=== PATIENT | female | born 1955 | race Caucasian/White ===

== ENCOUNTER → 2020-06-27 | Outpatient (CLI) | payer OTHER ==
--- NOTE | 2020-06-27 13:48 | XR ---
EXAMINATION TYPE: XR knee complete RT DATE OF EXAM: 06/27/2020 COMPARISON: NONE HISTORY: Pain TECHNIQUE: Three views are submitted. FINDINGS: Mild narrowing of the medial compartment of the knee joint compatible with mild arthropathy. Osseous structures are intact. No acute fracture seen. IMPRESSION: 1. No acute fracture or dislocation.
== END | disposition home or self-care (01) ==
LOC: RADXRYALE 11:39
PROVIDERS: ATTEND Family Medicine
DX: M25.561 Pain in right knee (principal)

== ENCOUNTER 2021-12-29 18:13 | Emergency (ER) | payer OTHER ==
[2021-12-29] MEDS ORDERED: SODIUM CHLORIDE 0.9% 1,000 ML IV ONE (18:18)
[2021-12-29 18:33] VITALS: RESP 18; TEMP 98.2
--- NOTE | 2021-12-29 18:42 | ED ---
General Adult HPI - General Chief complaint: Syncope Stated complaint: SYNCOPE Time Seen by Provider: 12/29/21 18:13 Source: patient, EMS, RN notes reviewed, old records reviewed Mode of arrival: EMS Limitations: no limitations - History of Present Illness Initial comments: This is a 66-year-old female presents emergency Department after syncopal episod e. Patient was donating plasma when she started feeling lightheaded and then according to EMS she passed out and began vomiting. Patient states on the way and she continued to be a little bit lightheaded but the nausea had subsided. Currently patient states she still feels slightly lightheaded but other than that she has no symptoms. Patient denies any patient denies any numbness weakness. Patient denies chest pain palpitations difficulty breathing shortness breath per patient any abdominal pain. And again patient has no nausea now but did vomit earlier. - Related Data Home Medications Medication Instructions Recorded Confirmed Acetaminophen/Diphenhydramine 1 tab PO HS 12/29/21 12/29/21 [Tylenol PM 500-25mg] Pantoprazole (Unknown Strength) 1 dose PO DAILY PRN 12/29/21 12/29/21 Allergies Allergy/AdvReac Type Severity Reaction Status Date / Time codeine AdvReac Vomiting Verified 12/29/21 18:56 Review of Systems ROS Statement: Those systems with pertinent positive or pertinent negative responses have been documented in the HPI. ROS Other: All systems not noted in ROS Statement are negative. Past Medical History Past Medical History: No Reported History History of Any Multi-Drug Resistant Organisms: None Reported Additional Past Surgical History / Comment(s): wisdom teeth Smoking Status: Never smoker Past Alcohol Use History: None Reported Past Drug Use History: None Reported General Exam - General Exam Comments Initial Comments: GENERAL: Patient is well-developed and well-nourished. Patient is nontoxic and well- hydrated and is in mild distress. ENT: Neck is soft and supple. No significant lymphadenopathy is noted. Oropharynx is clear. Moist mucous membranes. Neck has full range of motion without eliciting any pain. EYES: The sclera were anicteric and conjunctiva were pink and moist. Extraocular movements were intact and pupils were equal round and reactive to light. Eyelids were unremarkable. PULMONARY: Unlabored respirations. Good breath sounds bilaterally. No audible rales rhonchi or wheezing was noted. CARDIOVASCULAR: There is a regular rate and rhythm without any murmurs gallops or rubs. ABDOMEN: Soft and nontender with normal bowel sounds. SKIN: Skin is clear with no lesions or rashes and otherwise unremarkable. NEUROLOGIC: Patient is alert and oriented x3. Cranial nerves II through XII are grossly intact. Motor and sensory are also intact. Normal speech, volume and content. Symmetrical smile. MUSCULOSKELETAL: Normal extremities with adequate strength and full range of motion. LYMPHATICS: No significant lymphadenopathy is noted PSYCHIATRIC: Normal psychiatric evaluation. Limitations: no limitations Course Vital Signs 12/29/21 18:29 Temperature 98.2 F Pulse Rate 86 Respiratory 18 Rate Blood Pressure 129/84 O2 Sat by Pulse 95 Oximetry Medical Decision Making - Medical Decision Making I went back and reevaluated the patient she's been asymptomatic for the majority of her stay initially she had a little bit of lightheadedness but that is resolved. EKG shows sinus rhythm at 82 bpm KS interval 160 QRS is 80 QT interval 358 QTC is 397. Patient's EKG shows no ST segment elevation or depression. - Lab Data Result diagrams: 12/29/21 18:35 12/29/21 18:35 Lab Results 12/29/21 12/29/21 Range/Units 18:35 18:35 WBC 11.6 H (3.8-10.6) k/uL RBC 5.83 H (3.80-5.40) m/uL Hgb 18.0 H (11.4-16.0) gm/dL Hct 53.6 H (34.0-46.0) % MCV 91.9 (80.0-100.0) fL MCH 31.0 (25.0-35.0) pg MCHC 33.7 (31.0-37.0) g/dL RDW 13.1 (11.5-15.5) % Plt Count 153 (150-450) k/uL MPV 9.0 Neutrophils % 79 % Lymphocytes % 12 % Monocytes % 6 % Eosinophils % 1 % Basophils % 1 % Neutrophils # 9.2 H (1.3-7.7) k/uL Lymphocytes # 1.4 (1.0-4.8) k/uL Monocytes # 0.7 (0-1.0) k/uL Eosinophils # 0.2 (0-0.7) k/uL Basophils # 0.1 (0-0.2) k/uL Sodium 137 (137-145) mmol/L Potassium 3.8 (3.5-5.1) mmol/L Chloride 106 (98-107) mmol/L Carbon Dioxide 23 (22-30) mmol/L Anion Gap 8 mmol/L BUN 17 (7-17) mg/dL Creatinine 0.77 (0.52-1.04) mg/dL Est GFR (CKD-EPI)AfAm >90 (>60 ml/min/1.73 sqM) Est GFR (CKD-EPI)NonAf 82 (>60 ml/min/1.73 sqM) Glucose 107 H (74-99) mg/dL Calcium 8.4 (8.4-10.2) mg/dL Total Bilirubin 0.8 (0.2-1.3) mg/dL AST 27 (14-36) U/L ALT 19 (4-34) U/L Alkaline Phosphatase 73 (38-126) U/L Total Protein 5.4 L (6.3-8.2) g/dL Albumin 3.4 L (3.5-5.0) g/dL Disposition Clinical Impression: Vasovagal syncope Disposition: HOME SELF-CARE Condition: Good Instructions (If sedation given, give patient instructions): Syncope (ED) Additional Instructions: Patient should be well-hydrated prior to giving plasma. Is patient prescribed a controlled substance at d/c from ED?: No Referrals: None,Stated [Primary Care Provider] - 1-2 days Time of Disposition: 19:33
[2021-12-29 18:44] LABS: Basophils # (A) 0.1 k/uL (0-0.2); Basophils % (A) 1 %; Eosinophils # (A) 0.2 k/uL (0-0.7); Eosinophils % (A) 1 %; HCT 53.6 % (34.0-46.0); Lymphocytes # (A) 1.4 k/uL (1.0-4.8); Lymphocytes % (A) 12 %; MCHC 33.7 g/dL (31.0-37.0); MCV 91.9 fL (80.0-100.0); Monocytes # (A) 0.7 k/uL (0-1.0); Monocytes % (A) 6 %; Neutrophils # (A) 9.2 k/uL (1.3-7.7); Neutrophils % (A) 79 %; Platelet Count 153 k/uL (150-450); RBC 5.83 m/uL (3.80-5.40); RDW 13.1 % (11.5-15.5); WBC 11.6 k/uL (3.8-10.6)
[2021-12-29 18:53] LABS: ALT 19 U/L (4-34); AST 27 U/L (14-36); African American GFR (CKD) >90 (>60 ml/min/1.73 sqM); Albumin 3.4 g/dL (3.5-5.0); Alkaline Phosphatase 73 U/L (38-126); Anion Gap 8 mmol/L; Blood Urea Nitrogen 17 mg/dL (7-17); Calcium 8.4 mg/dL (8.4-10.2); Carbon Dioxide 23 mmol/L (22-30); Chloride 106 mmol/L (98-107); Glucose 107 mg/dL (74-99); Non-African American GFR(CKD) 82 (>60 ml/min/1.73 sqM); Sodium 137 mmol/L (137-145); Total Bilirubin 0.8 mg/dL (0.2-1.3); Total Protein 5.4 g/dL (6.3-8.2)
[2021-12-29 19:15] LABS: Potassium 3.8 mmol/L (3.5-5.1)
[2021-12-29 20:25] VITALS: BP 153/96; PULSE 79
== END 2021-12-29 20:26 | disposition home or self-care (01) ==
LOC: EC 18:13
DX: R55 Syncope and collapse (principal); Z88.5 Allergy status to narcotic agent
CPT/HCPCS: 36415; 80053; 85025; 96360; 99284